=== PATIENT | male | born 1985 | race Caucasian/White ===

== ENCOUNTER 2020-02-18 12:47 | Observation (INO) | payer OTHER, BC ==
[2020-02-18] MEDS ORDERED: fentaNYL 50 MCG/ML SDV IVPUSH ONE (12:57)
--- NOTE | 2020-02-18 13:00 | EDM.PDOC ---
ED [facility] GENERAL MEDICAL PROBLEM - General Chief Complaint: Trauma Stated Complaint: TRAUMA ALERT Time Seen by Provider: 02/18/20 13:00 Source of Information: Reports: Patient - History of Present Illness INITIAL COMMENTS - FREE TEXT/NARRATIVE: Patient is 34-year-old male no significant past medical history presenting with chief complaint of right-sided chest pain. Chest pain started after he fell from a ladder. He was 6 to 7 feet off the ground and landed on his right side. Pain is severe in nature and does not radiate. Patient denies any head injury or loss of consciousness. Pain is worse with movement. Patient reports pain with deep breaths. Patient denies any lightheaded dizziness or abdominal pain. Onset of pain was just prior to arrival. Pmhx: None Pshx: None Family Hx: noncontributory Smoking history? no Etoh use? none Drug use? none In addition to that documented in the HPI above, the additional ROS was obtained : Constitutional: Denies fevers or chills Eyes: Denies vision changes ENMT: Denies sore throat CV: Per HPI Resp: Denies SOB GI: Denies vomiting or diarrhea : Denies painful urination MSK: Denies recent trauma Skin: Denies new rashes Neuro: Denies new numbness or tingling or weakness Endocrine: Denies unexpected weight loss Heme: Denies bleeding disorders GENERAL: In moderate distress and discomfort SKIN: Warm and well perfused. Superficial linear abrasion to the left lower extremity on the anterior aspect of the walker HEAD: Atraumatic, normocephalic without edema, discoloration or evidence of trauma. Facial bones without deformities or tenderness. EYES: PERRL. No scleral icterus or conjunctival injection. Extraocular muscles intact without nystagmus or diplopia. No proptosis or enophthalmos. EARS: Normal appearing pinnae. No hemotympanum. NOSE: No discharge, tenderness, laxity. No nasal septal hematoma. MOUTH: No malocclusion or trismus. Moist mucus membranes without blood. Posterior pharynx without erythema or exudate. NECK: Trachea midline. No discolorations or edema. Demonstrates full active range of motion without pain. No midline cervical spine tenderness. CV: Regular rate and rhythm, Normal s1 and s2. No murmurs, rubs, or gallops. PV: Radial pulses 2+ bilaterally and symmetric. Dorsalis pedis pulses 2+ bilaterally and symmetric. 2+ capillary refill. No extremity edema. CHEST: Significant tenderness to the right lower lateral chest wall. No abrasions or ecchymosis. Chest symmetric with respirations. No step offs. Lungs are clear to auscultation bilaterally. No rales, rhonchi, wheezing or stridor. ABDOMEN: No ecchymosis or abrasions. Soft, nondistended, nontender. Bowel tones normoactive. No masses or organomegaly. BACK: No abrasions, skin openings, or ecchymosis. Spine without bony tenderness , no step offs. PELVIC: Pelvis stable, nontender to lateral compression and palpation of symphysis pubis. MSK: No gross deformities or discolorations or lesions. Tolerates full range of motion of extremities without tenderness. NEURO: Alert and oriented to person, place, and time. GCS 15. CN II-XII intact. Sensation grossly intact. Strength 5/5 in bilateral UE and LE. Finger to nose intact bilaterally. Assessment and plan: Patient is 34-year-old male complaining of right-sided chest pain status post fall. Patient had no evidence of head injury on initial exam. Patient CT scans demonstrating 5 rib fractures from ribs 8 through 12. No evidence of pneumothorax. No evidence of intra-abdominal or intrathoracic injury. Head CT was not performed given lack of head injury and normal level of consciousness with normal neuro exam. Patient required high amount of pain medication secondary to the rib fractures. No evidence of spinal fractures. No evidence of flail chest on exam or CT. Given large number of rib fractures and significant pain, patient will be placed in the MedSurg unit for continued treatment by general surgery. right ribs Pain Score (Numeric/FACES): 10 - Related Data Allergies Allergy/AdvReac Type Severity Reaction Status Date / Time No Known Allergies Allergy Verified 02/18/20 13:22 Home Meds: Home Meds . [No Known Home Meds] 02/18/20 [History] Past Medical History - Past Health History Medical/Surgical History: Denies Medical/Surgical History Gastrointestinal History: Reports: GERD Other Gastrointestinal History: epigastric hernia surgery Other Musculoskeletal History: arthritis to knee - Past Surgical History GI Surgical History: Reports: Colonoscopy, Hernia Repair/Other, Other (See Below ) Other GI Surgeries/Procedures: hemmoroids removed Social & Family History - Family History Family Medical History: Noncontributory - Caffeine Use Caffeine Use: Reports: Energy Drinks Review of Systems - Review of Systems Review Of Systems: See Below ED EXAM, GENERAL - Physical Exam Exam: See Below Course - Vital Signs Last Recorded V/S: Last Vital Signs Temp 37.3 C 02/18/20 16:00 Pulse 84 02/18/20 16:00 Resp 20 02/18/20 16:00 BP 138/77 02/18/20 16:00 Pulse Ox 96 02/18/20 16:00 - Orders/Labs/Meds Orders: Medication Orders Diazepam (Valium) 2 mg PO BID PRN PRN Reason: Breakthrough Pain Hydromorphone HCl (Dilaudid) 2 mg PO Q3H PRN PRN Reason: Pain Lactated Ringer's (Ringers, Lactated) 1,000 mls @ 125 mls/hr IV ASDIRECTED DL Labs: Laboratory Tests 02/18/20 02/18/20 02/18/20 Range/Units 12:54 12:54 12:56 WBC 9.61 (4.0-11.0) K/uL RBC 5.09 (4.50-5.90) M/uL Hgb 14.7 (13.0-17.0) g/dL Hct 44.2 (38.0-50.0) % MCV 86.8 (80.0-98.0) fL MCH 28.9 (27.0-32.0) pg MCHC 33.3 (31.0-37.0) g/dL RDW Std Deviation 41.2 (28.0-62.0) fl RDW Coeff of Kimberlee 13 (11.0-15.0) % Plt Count 361 (150-400) K/uL MPV 9.70 (7.40-12.00) fL Neut % (Auto) 64.6 (48.0-80.0) % Lymph % (Auto) 27.2 (16.0-40.0) % Tyler % (Auto) 5.6 (0.0-15.0) % Eos % (Auto) 2.4 (0.0-7.0) % Baso % (Auto) 0.2 (0.0-1.5) % Neut # (Auto) 6.2 H (1.4-5.7) K/uL Lymph # (Auto) 2.6 H (0.6-2.4) K/uL Tyler # (Auto) 0.5 (0.0-0.8) K/uL Eos # (Auto) 0.2 (0.0-0.7) K/uL Baso # (Auto) 0.0 (0.0-0.1) K/uL Nucleated RBC % 0.0 /100WBC Nucleated RBCs # 0 K/uL Sodium 138 (136-148) mmol/L Potassium 3.2 L (3.5-5.1) mmol/L Chloride 101 (98-107) mmol/L Carbon Dioxide 27.3 (21.0-32.0) mmol/L BUN 21 H (7.0-18.0) mg/dL Creatinine 1.1 (0.8-1.3) mg/dL Est Cr Clr Drug Dosing 101.90 mL/min Estimated GFR (MDRD) > 60.0 ml/min Glucose 187 H (74-106) mg/dL Calcium 8.8 (8.5-10.1) mg/dL Total Bilirubin 0.4 (0.2-1.0) mg/dL AST 53 H (15-37) IU/L ALT 81 H (14-63) IU/L Alkaline Phosphatase 84 (46-116) U/L Total Protein 7.7 (6.4-8.2) g/dL Albumin 4.2 (3.4-5.0) g/dL Globulin 3.5 (2.6-4.0) g/dL Albumin/Globulin Ratio 1.2 (0.9-1.6) Blood Type O POSITIVE Antibody Screen NEGATIVE Meds: Medications Generic Name Dose Route Start Last Admin Trade Name Freq PRN Reason Stop Dose Admin Diazepam 2 mg 02/18/20 16:22 Valium PO BID PRN Breakthrough Pain Hydromorphone HCl 2 mg 02/18/20 16:20 Dilaudid PO Q3H PRN Pain Lactated Ringer's 1,000 mls @ 125 mls/hr 02/18/20 16:30 Ringers, Lactated IV ASDIRECTED DL Discontinued Medications Generic Name Dose Route Start Last Admin Trade Name Freq PRN Reason Stop Dose Admin Fentanyl 75 mcg 02/18/20 12:57 02/18/20 13:30 Fentanyl IVPUSH 02/18/20 12:58 75 mcg ONETIME ONE Administration Fentanyl Confirm 02/18/20 13:26 02/18/20 13:32 Fentanyl Administered 02/18/20 13:27 Not Given Dose 50 mcg .ROUTE .STK-MED ONE Iopamidol 100 ml 02/18/20 13:16 02/18/20 13:38 Isovue Multipack-370 (76%) IVPUSH 02/18/20 13:17 100 ml ONETIME STA Administration Ketorolac Tromethamine 15 mg 02/18/20 14:14 02/18/20 14:29 Toradol IVPUSH 02/18/20 14:15 15 mg ONETIME ONE Administration Morphine Sulfate 6 mg 02/18/20 13:49 02/18/20 13:56 Morphine IVPUSH 02/18/20 13:50 6 mg ONETIME ONE Administration Ondansetron HCl 4 mg 02/18/20 13:49 02/18/20 13:57 Zofran IVPUSH 02/18/20 13:50 4 mg ONETIME ONE Administration Departure - Departure Time of Disposition: 14:15 Disposition: Admitted As Inpatient 64 Clinical Impression: Fracture of multiple ribs - Discharge Information Sepsis Event Note - Focused Exam Vital Signs: Vital Signs Temp Pulse Resp BP Pulse Ox 02/18/20 12:47 35.3 C L 90 22 H 161/101 H 94 L Date Exam was Performed: 02/18/20 Time Exam was Performed: 16:56
[2020-02-18] MEDS ORDERED: Iopamidol 755 MG/ML 500 ML Multipack Bottle IVPUSH STA (13:16)
[2020-02-18] MEDS ORDERED: fentaNYL 50 MCG/ML SDV ONE (13:26)
--- NOTE | 2020-02-18 13:38 | CR ---
Chest: Portable view of the chest was obtained. Comparison: No prior chest imaging is available. Findings: Heart size and mediastinum are normal. Lungs are clear with no acute parenchymal change. Bony structures are grossly intact. Impression: 1. Nothing acute is seen on portable chest x-ray. Diagnostic code #1 This report was dictated in MDT
[2020-02-18 13:40] LABS: BLOOD UREA NITROGEN,BUN 21 mg/dL (7.0-18.0); CARBON DIOXIDE,CO2 27.3 mmol/L (21.0-32.0); CHLORIDE,CL 101 mmol/L (98-107); GLUCOSE RANDOM 187 mg/dL (74-106); POTASSIUM,K 3.2 mmol/L (3.5-5.1); SODIUM,NA 138 mmol/L (136-148)
[2020-02-18] MEDS ORDERED: Ondansetron 4 MG/2 ML SDV IVPUSH ONE (13:49)
[2020-02-18] MEDS ORDERED: Morphine 10 MG/ML Syringe IVPUSH ONE (13:49)
--- NOTE | 2020-02-18 13:55 | CT ---
CT chest Technique: Multiple axial sections were obtained from above the lung apices inferiorly through the lung bases. Intravenous contrast was utilized. Comparison: Prior chest x-ray performed earlier on the same day (12:55 PM), no prior chest CT. Findings: Mediastinum and hilar regions appear unremarkable. No mediastinal hematoma seen. Aorta shows no aneurysm. No pericardial thickening is seen. Small portion of the visualized upper abdominal structures show no discrete abnormality. Slight dependent atelectasis is seen posteriorly within both lung bases. Lungs otherwise are clear. No findings of pulmonary contusion. No definite pneumothorax is appreciated. No pleural effusions are seen. Bone window settings were reviewed. Minimally displaced fracture is noted within the lateral right 8th rib. More significantly displaced fracture is noted within the posterolateral right 9th rib. Minimally displaced fracture is noted more posteriorly within the right 10th rib. Vertebral body heights are maintained within the thoracic spine. Impression: 1. 3 right-sided rib fractures as noted above. 2. Mild dependent atelectasis. 3. No other acute finding is seen on CT study of the chest. Diagnostic code #3 This report was dictated in MDT
--- NOTE | 2020-02-18 13:55 | CT ---
CT cervical spine Technique: Multiple axial sections were obtained from above C1 inferiorly to the bottom of T1. Reconstructed sagittal and coronal images were obtained. Findings: Moderate disc space narrowing is seen at C5-6 with anterior osteophytes and mild posterior osteophytes. Minimal disc space narrowing at C4-5 with mild anterior osteophytes. Vertebral bodies and posterior arches are intact with no fracture being seen. No bony central or bony neural foraminal stenosis is seen. No abnormal subluxation is seen. Slight degenerative change within the uncovertebral joints are seen at C4-5 and C5-6. Impression: 1. Mild degenerative change. 2. No acute fracture or subluxation is appreciated on CT study of the cervical spine. Diagnostic code #2 This report was dictated in MDT
--- NOTE | 2020-02-18 13:59 | CT ---
CT lumbar spine Technique: Multiple axial sections were obtained from slightly above the T10-11 disc inferiorly through the L5-S1 discs. Reconstructed sagittal and coronal images were reviewed. Findings: Moderate disc space narrowing at L5-S1 with minimal vacuum disc phenomena. Posterior and anterior spurring is seen at C5-6. Vertebral bodies and posterior arches are intact. No fracture is appreciated. No abnormal subluxation is seen. No bony central canal stenosis is seen. No discrete neural foraminal stenosis is seen. Impression: 1. Degenerative change at L5-S1. 2. No acute fracture or abnormal subluxation is seen. Diagnostic code #2 This report was dictated in MDT
--- NOTE | 2020-02-18 14:03 | CT ---
CT thoracic spine Technique: Multiple axial sections through the thoracic spine were obtained. Reconstructed coronal and sagittal images were obtained. Findings: Vertebral body heights and disc spaces are maintained. Vertebral bodies and posterior arches are intact. No fracture is seen within the thoracic spine. Right-sided rib fractures are again seen. Additional fracture is noted near the right costovertebral junction of T12 and posteriorly with displacement and mild comminution within the right T11 rib. These 2 ribs were not included on the prior chest CT. No abnormal subluxation is seen. Impression: 1. Fractures within the T11 and T12 right-sided ribs as described above. These ribs were not included on prior chest CT. 2. No thoracic spine fracture is seen. No abnormal subluxation is appreciated. Diagnostic code #3 This report was dictated in MDT
--- NOTE | 2020-02-18 14:05 | CT ---
CT abdomen and pelvis Technique: Multiple axial sections were obtained from above the dome of the diaphragm inferiorly through the pubic symphysis. Intravenous contrast was utilized. No oral contrast has been given. Findings: Liver shows no discrete abnormality. Spleen appears within normal limits. Adrenal glands show no nodule. Pancreas is within normal limits. Gallbladder contains no calcified gallstones. Kidneys show symmetric contrast enhancement without hydronephrosis or mass. Aorta shows no aneurysm. No retroperitoneal adenopathy or mesenteric abnormalities are seen. Appendix is seen which is normal in size. No pelvic mass or adenopathy is seen. No free fluid or inflammatory change is appreciated. Bone window settings were reviewed which show disc space narrowing at L5-S1. No acute osseous finding is appreciated other than previously noted right-sided rib fractures. Impression: 1. Nothing acute is seen on CT study of the abdomen and pelvis. 2. Previous right-sided rib fractures are again seen. Diagnostic code #3 This report was dictated in MDT
[2020-02-18] MEDS ORDERED: Ketorolac 30 MG/ML SDV IVPUSH ONE ×2 (14:14→21:03)
[2020-02-18] MEDS: HYDROmorphone 2 MG Tab PO PRN ×3 (17:27→23:43)
[2020-02-18] MEDS: Diazepam 2 MG Tab PO PRN (17:29)
[2020-02-18] MEDS: Lactated Ringers 1,000 ML IV SCH (17:30)
--- NOTE | 2020-02-18 22:36 | CR ---
Chest: 2 views of the chest were obtained. Comparison: Prior chest x-ray performed earlier on the same day (12:55 PM) and chest CT study performed earlier on the same day (1:16 PM). Rib fractures are seen within the right lower chest which are better identified on the chest CT. Heart size and mediastinum are normal. Lungs are clear. No pneumothorax is seen. No additional bony abnormality is appreciated. Impression: 1. Right lower rib fractures are seen but better identified on previous chest CT. 2. No pneumothorax is seen. 3. Nothing acute is otherwise appreciated. Diagnostic code #3 This report was dictated in MDT
[2020-02-19] MEDS: Lactated Ringers 1,000 ML IV SCH (01:59)
[2020-02-19] MEDS: HYDROmorphone 2 MG Tab PO PRN ×3 (03:08→08:55)
[2020-02-19] MEDS: Diazepam 2 MG Tab PO PRN ×2 (05:34→08:55)
--- NOTE | 2020-02-19 08:17 | CR ---
Chest: 2 views of the chest were obtained. Comparison: Prior chest x-ray of 02/18/20. Mild atelectasis is seen within both lung bases. Lungs otherwise are clear. No pneumothorax is seen. Heart size and mediastinum are normal. Right lower rib fractures are noted. Impression: 1. Mild bibasilar atelectasis. 2. Right lower rib fractures are again seen. 3. No acute parenchymal change is seen. No pneumothorax is seen. Diagnostic code #3 This report was dictated in MDT
--- NOTE | 2020-02-19 08:25 | HP ---
DATE OF : 1985 PRIMARY CARE PHYSICIAN: Gavinobitzel PCP This is a trauma admit for observation. HISTORY OF PRESENT ILLNESS: The patient is a 196-pound gentleman and fell down 6 to 7 feet from a ladder. Denied loss of consciousness. Trauma workup; C-spine is fine, T-spine is fine, L- spine is fine, but CT chest shows the patient has a right posterior rib fracture at 12, 11, 10, 9, 8, five-rib fracture. The patient, although with no loss of consciousness, was admitted for observation for pain management. PAST MEDICAL HISTORY: Significant for no diabetes, ND, CVA, hypertension. PAST SURGICAL HISTORY: The patient has epigastric hernia repair, no mesh used. ALLERGIES: Please refer to nursing for details. MEDICATIONS: Please refer to nursing for details. PHYSICAL EXAMINATION: GENERAL: Obviously, a gentleman in pain, lying in bed, in no acute distress. The patient is very polite, very pleasant. HEENT: Normocephalic and atraumatic. Sclerae are anicteric. LUNGS: Clear to auscultation. HEART: Regular rate and rhythm. ABDOMEN: Soft, nondistended. No pulsating tender midline abdominal structure. No cutaneous crepitus. PELVIS: Stable. NECK: Trachea is midline. EXTREMITIES: Calf has no tenderness. BACK: Looked at the back. Skin is intact. There is no ecchymosis and clinical exam on the C, T, L-spine nontender. No step-off. LABORATORY DATA: Blood work: H and H are 14.7 and 44, platelets are 361,000. BUN is 21, creatinine is 1.1, glucose 187. TBili is 0.4, AST and ALT are mildly elevated at 53 an 81. IMPRESSION: Trauma, fell down 6 to 7 feet from ladder with five-rib fracture, admitted for pain management. If all goes well and pain is controlled, the patient is expected to be discharged tomorrow morning. ARTIE / HIGINIO /[id number]
[2020-02-19] MEDS ORDERED: Ibuprofen 800 MG Tab PO PRN (09:16)
[2020-02-19] MEDS ORDERED: HYDROmorphone 2 MG Tab PO PRN (09:17)
--- NOTE | 2020-02-19 09:29 | PCM.SURGPN ---
- General Info Date of Service: 02/19/20 Functional Status: Reports: Other (pain remained an issue; per pharmacy, added 800mg po motrin q8 prn pain; otherwise, pt doing well) - Patient Data Vitals - Most Recent: Last Vital Signs Temp 97.9 F 02/19/20 03:00 Pulse 61 02/19/20 03:00 Resp 20 02/19/20 03:00 BP 115/60 02/19/20 03:00 Pulse Ox 94 L 02/19/20 03:00 Weight - Most Recent: 196 lb 4.8 oz I&O - Last 24 Hours: Intake & Output 02/18/20 02/19/20 02/19/20 22:59 06:59 14:59 Intake Total 2042 Output Total 600 1150 Balance -600 892 Lab Results Last 24 Hrs: Laboratory Results - last 24 hr 02/18/20 02/18/20 02/18/20 Range/Units 12:54 12:54 12:56 WBC 9.61 (4.0-11.0) K/uL RBC 5.09 (4.50-5.90) M/uL Hgb 14.7 (13.0-17.0) g/dL Hct 44.2 (38.0-50.0) % MCV 86.8 (80.0-98.0) fL MCH 28.9 (27.0-32.0) pg MCHC 33.3 (31.0-37.0) g/dL RDW Std Deviation 41.2 (28.0-62.0) fl RDW Coeff of Kimberlee 13 (11.0-15.0) % Plt Count 361 (150-400) K/uL MPV 9.70 (7.40-12.00) fL Neut % (Auto) 64.6 (48.0-80.0) % Lymph % (Auto) 27.2 (16.0-40.0) % Benzie % (Auto) 5.6 (0.0-15.0) % Eos % (Auto) 2.4 (0.0-7.0) % Baso % (Auto) 0.2 (0.0-1.5) % Neut # (Auto) 6.2 H (1.4-5.7) K/uL Lymph # (Auto) 2.6 H (0.6-2.4) K/uL Benzie # (Auto) 0.5 (0.0-0.8) K/uL Eos # (Auto) 0.2 (0.0-0.7) K/uL Baso # (Auto) 0.0 (0.0-0.1) K/uL Nucleated RBC % 0.0 /100WBC Nucleated RBCs # 0 K/uL Sodium 138 (136-148) mmol/L Potassium 3.2 L (3.5-5.1) mmol/L Chloride 101 (98-107) mmol/L Carbon Dioxide 27.3 (21.0-32.0) mmol/L BUN 21 H (7.0-18.0) mg/dL Creatinine 1.1 (0.8-1.3) mg/dL Est Cr Clr Drug Dosing 101.90 mL/min Estimated GFR (MDRD) > 60.0 ml/min Glucose 187 H (74-106) mg/dL Calcium 8.8 (8.5-10.1) mg/dL Total Bilirubin 0.4 (0.2-1.0) mg/dL AST 53 H (15-37) IU/L ALT 81 H (14-63) IU/L Alkaline Phosphatase 84 (46-116) U/L Total Protein 7.7 (6.4-8.2) g/dL Albumin 4.2 (3.4-5.0) g/dL Globulin 3.5 (2.6-4.0) g/dL Albumin/Globulin Ratio 1.2 (0.9-1.6) Blood Type O POSITIVE Antibody Screen NEGATIVE Med Orders - Current: Current Medications Diazepam (Valium) 2 mg PO BID PRN PRN Reason: Breakthrough Pain Last Admin: 02/19/20 08:55 Dose: 2 mg Hydromorphone HCl (Dilaudid) 4 mg PO Q4H PRN PRN Reason: Pain Lactated Ringer's (Ringers, Lactated) 1,000 mls @ 125 mls/hr IV ASDIRECTED [facility] Last Admin: 02/19/20 01:59 Dose: 125 mls/hr Ibuprofen (Motrin) 800 mg PO Q8H PRN PRN Reason: Pain Discontinued Medications Fentanyl (Fentanyl) 75 mcg IVPUSH ONETIME ONE Stop: 02/18/20 12:58 Last Admin: 02/18/20 13:30 Dose: 75 mcg Fentanyl (Fentanyl) Confirm Administered Dose 50 mcg .ROUTE .STK-MED ONE Stop: 02/18/20 13:27 Last Admin: 02/18/20 13:32 Dose: Not Given Hydromorphone HCl (Dilaudid) 2 mg PO Q3H PRN PRN Reason: Pain Last Admin: 02/19/20 08:55 Dose: 2 mg Iopamidol (Isovue Multipack-370 (76%)) 100 ml IVPUSH ONETIME STA Stop: 02/18/20 13:17 Last Admin: 02/18/20 13:38 Dose: 100 ml Ketorolac Tromethamine (Toradol) 15 mg IVPUSH ONETIME ONE Stop: 02/18/20 14:15 Last Admin: 02/18/20 14:29 Dose: 15 mg Ketorolac Tromethamine (Toradol) 30 mg IVPUSH ONETIME ONE Stop: 02/18/20 21:04 Last Admin: 02/18/20 21:49 Dose: 30 mg Morphine Sulfate (Morphine) 6 mg IVPUSH ONETIME ONE Stop: 02/18/20 13:50 Last Admin: 02/18/20 13:56 Dose: 6 mg Ondansetron HCl (Zofran) 4 mg IVPUSH ONETIME ONE Stop: 02/18/20 13:50 Last Admin: 02/18/20 13:57 Dose: 4 mg - Exam GI/Abdominal Exam: Soft Sepsis Event Note - Evaluation Sepsis Screening Result: No Definite Risk - Focused Exam Vital Signs: Vital Signs Temp Pulse Resp BP Pulse Ox 02/19/20 03:00 97.9 F 61 20 115/60 94 L 02/18/20 23:47 97.6 F 56 L 20 129/54 L 94 L Date Exam was Performed: 02/19/20 Time Exam was Performed: 09:24 - Problem List Review Problem List Initiated/Reviewed/Updated: Yes - My Orders Last 24 Hours: Active Orders 24 hr Category Date Time Status Admission Status [Patient Status] [ADT] Routine ADT 02/18/20 16:29 Active Admission Status [Patient Status] [ADT] Stat ADT 02/18/20 14:28 Active Telemetry Monitoring [Cardiac Monitoring] [RC] Q8H Care 02/18/20 15:41 Active Full Liquid Diet [DIET] Diet 02/19/20 Breakfast Active Regular Diet [DIET] Diet 02/19/20 Breakfast Active HYDROmorphone [Dilaudid] Med 02/19/20 09:17 Ordered 4 mg PO Q4H PRN Ibuprofen [Motrin] Med 02/19/20 09:16 Active 800 mg PO Q8H PRN Lactated Ringers [Ringers, Lactated] 1,000 ml Med 02/18/20 16:30 Active IV ASDIRECTED diazePAM [Valium] Med 02/18/20 16:22 Active 2 mg PO BID PRN Medication Orders Diazepam (Valium) 2 mg PO BID PRN PRN Reason: Breakthrough Pain Last Admin: 02/19/20 08:55 Dose: 2 mg Admin: 02/19/20 05:34 Dose: 2 mg Admin: 02/18/20 17:29 Dose: 2 mg Hydromorphone HCl (Dilaudid) 4 mg PO Q4H PRN PRN Reason: Pain Lactated Ringer's (Ringers, Lactated) 1,000 mls @ 125 mls/hr IV ASDIRECTED DL Last Admin: 02/19/20 01:59 Dose: 125 mls/hr Infusion: 02/19/20 01:30 Dose: 125 mls/hr Admin: 02/18/20 17:30 Dose: 125 mls/hr Ibuprofen (Motrin) 800 mg PO Q8H PRN PRN Reason: Pain - Assessment Assessment (Free Text/Narrative):: continue change meds to get pain more in control, thanks for pharmacy input; new regimen would be 4mg dilaudid q4prn and 800 mg motrin q8 prn, take w food; plan discharge by noon - Plan Plan (Free Text/Narrative):: continue change meds to get pain more in control, thanks for pharmacy input; new regimen would be 4mg dilaudid q4prn and 800 mg motrin q8 prn, take w food; plan discharge by noon
== END 2020-02-19 14:45 | disposition home or self-care (01) ==
LOC: MW.ED 12:47 → MW.MS 14:28
PROVIDERS: ADMIT Surgery; ATTEND Surgery
DX: S22.41XA Multiple fractures of ribs, right side, initial encounter for closed fracture (principal); K21.9 Gastro-esophageal reflux disease without esophagitis; W11.XXXA Fall on and from ladder, initial encounter
CPT/HCPCS: 36415; 71045; 71046; 71260; 72125; 74177; 80053; 85025; 86850; 86900; 86901; 96374; 96375; 99285; A9270; J1885; J2270; J2405; J3010; J7120; Q9967; 72128; 72128-26; 72131; 72131-26